=== PATIENT | male | born 1970 | race Caucasian/White ===

== ENCOUNTER 2017-10-16 13:20 | Emergency (ER) | payer SELFPAY | END 2017-10-16 14:53 | disposition home or self-care (01) | LOC: MADERS 13:20 | DX: Z02.79 Encounter for issue of other medical certificate (principal); F17.210 Nicotine dependence, cigarettes, uncomplicated | CPT/HCPCS: 99282 ==

== ENCOUNTER 2017-11-04 15:03 | Emergency (ER) | payer SELFPAY ==
[2017-11-04] MEDS ORDERED: diphenhydrAMINE 25 MG CAP ONE (15:32)
[2017-11-04] MEDS ORDERED: Famotidine 20 MG TAB ONE (15:32)
[2017-11-04] MEDS ORDERED: methylPREDNISolone Sod Succ/PF 125 MG/2 ML VIAL ONE (15:32)
== END 2017-11-04 15:55 | disposition home or self-care (01) ==
LOC: MADERS 15:03
DX: L23.7 Allergic contact dermatitis due to plants, except food (principal); F17.210 Nicotine dependence, cigarettes, uncomplicated
CPT/HCPCS: 96374; J2930